=== PATIENT | male | born 2005 ===

== ENCOUNTER 2024-04-27 23:02 | Emergency (ER) | payer SELFPAY ==
[2024-04-27 23:05] VITALS: BP 114/86
--- NOTE | 2024-04-27 23:52 | ED.GENMED ---
History of Present Illness
General
Chief Complaint: Musculo-Skeletal Complaint
Source: patient
Exam Limitations: none
Time Seen by Provider: 04/27/24 23:52
Nursing documentation reviewed up to this point in time: agreed with
History of Present Illness
History of Present Illness:
The patient is a generally well and healthy 18-year-old man who was playing basketball at around 10 PM, jumped, and landed funny onto his right ankle. Patient reports he has developed swelling and pain on the outer aspect of his right ankle. He
reports he is unable to bear weight. He denies weakness and numbness of his feet. He did not hit his head. He denies any other areas of pain besides his right ankle.
Past History
Past History
ED Past Medical History: None
ED Past Surgical History: Tonsilectomy
Social History
Tobacco: Non-smoker
Alcohol: None
Drug: None
Personal: Single
Living: with family
Employment: Other
Family History
Family History: Other
Review of Systems
Review of Systems
Allergies reviewed?: Yes
All Other Systems: ROS reviewed and negative except as documented in HPI and ROS
Constitutional: Reports no symptoms
EENT: Reports no symptoms
Respiratory: Reports no symptoms
Cardiac: Reports no symptoms
ABD/GI: Reports no symptoms
: Reports no symptoms
Musculoskeletal: Reports joint pain and joint swelling
Skin: Reports no symptoms
Neurological: Reports no symptoms
Endocrine: Reports no symptoms
Hematologic/Lymphatic: Reports no symptoms
Psychiatric: Reports no symptoms
Phy Exam
Physical Exam
Physical Exam:
Physical Exam
General: Atraumatic appearing face and head
Neck: supple. Nontender C-spine
Heart: s1/s2 regular rate and rhythm, no murmur. equal radial pulses.
Lungs: no acute respiratory distress. clear bilaterally. No vertebral spine tenderness
Abdomen: normal bowel sounds. not tender. no CVAT
Neuro: alert and oriented. no focal neurological deficits
Skin: no rash
Psychiatric: well kept. interactive and cooperative
Extremities: Mild soft tissue swelling along lateral aspect of right foot and ankle. Nontender pelvis and hips. Strong pulses of right foot
Course
Orders/Labs/Results
Orders:
Orders
04/27/24 23:09
Ankle, Right 3 view CR [CR Ankle - Right Min 3 Views *] Urgent
Comment:
Reason For Exam: 'rolled' r ankle
04/28/24 00:31
Air Splint Right-Treatment ONCE
Crutches-Treatment ONCE
Ibuprofen [Motrin] 600 mg PO NOW STA
Vital Signs
Initial and Last Documented VS:
Initial Vital Signs
Temp Pulse Resp BP Pulse Ox
98.2 F 87 14 114/86 98
04/27/24 23:05 04/27/24 23:05 04/27/24 23:05 04/27/24 23:05 04/27/24 23:05
Last Documented Vital Signs
Temp Pulse Resp BP Pulse Ox
98.2 F 87 14 114/86 98
04/27/24 23:05 04/27/24 23:05 04/27/24 23:05 04/27/24 23:05 04/27/24 23:05
MDM/Problems Addressed
Differential Diagnosis Includes:
Acute right ankle sprain, right ankle fracture, right ankle contusion
MDM/Problems Addressed:
Patient presents with acute right ankle swelling and pain after twisting his right ankle
*Radiology
Radiology exam reviewed: preliminary read by ED provider (Right ankle x-ray reviewed by me. No fracture seen)
*Pulse Oximetry
Patient hypoxic: no
*EKG
Interpreted by ED Provider?: NA
*De Alcholizer Interpretation
Rate: De Alcholizer- N/A
*Critical Care Note
Total Time (30-74mins, 75-104mins- exclusive of procedures): Not Applicable
Data Reviewed
Source: patient
ED Attending Note
-
Portions of this chart may have been created with voice recognition software.� Occasional wrong word or��sound alike� substitutions may have occurred due to the inherent limitations of voice recognition software.
Discharge Plan
Departure
Patient Disposition: Home (Routine Discharge)
Date of Disposition: 04/28/24
Time of Disposition: 00:32
Patient with high blood pressure during this ER visit?: No
Condition: Good
Covid-19: Not Applicable
Discharge Problem:
Sprain of ankle, right
Instructions: How to Use Crutches, Ankle Sprain ED
Referrals:
Melchor Ayon DO [Family Provider] -
Stand Alone Forms: Return to Work
Activity Restrictions/Additional Instructions:
Take Motrin 600 mg with food every 6-8 hours for pain. Ice and elevate your right ankle is much as possible. You can start to bear weight on your right foot as the pain improves. Please follow-up with your primary care doctor within 1 week if you
are still having significant pain.
Interventions
Interventions:
*Risk Screen - Suicide Last Done: 04/27/24 23:30
*General Assessment Last Done: 04/27/24 23:30
*Neglect/Abuse Screening Last Done: 04/27/24 23:30
ED-Musculoskeletal Assessment Last Done: 04/27/24 23:24
Discharge Date and Time
Print Language: WELSH
[2024-04-28 00:53] VITALS: BP 111/66
[2024-04-28 00:56] VITALS: BP 111/66
== END 2024-04-28 00:57 | disposition home or self-care (01) ==
LOC: EMR 23:02
PROVIDERS: EMERGENCY PHYSICIAN Emergency Medicine; FAMILY PHYSICIAN Pediatrics
DX: S93.401A Sprain of unspecified ligament of right ankle, initial encounter (principal); Y93.67 Activity, basketball
CPT/HCPCS: 99283; 73610